=== PATIENT | male | born 1950 | race Two or more races ===

== ENCOUNTER 2024-08-25 07:30 | Outpatient (REF) | payer OTHER, SELFPAY ==
[2024-08-25 09:12] LABS: Syphilis Screen Nonreactive (Nonreactive)
[2024-08-25 09:32] LABS: Vitamin B12 238 pg/mL (200-900)
== END 2024-08-25 07:31 | disposition home or self-care (01) ==
LOC: HO.LAB 07:30
PROVIDERS: Visit Provider Psychiatry & Neurology Neurology
DX: G30.9 Alzheimer's disease, unspecified (principal)
CPT/HCPCS: 36415; 82607; 86780